=== PATIENT | female | born 2000 | race American Indian/Alaskan Native ===

== ENCOUNTER 2019-02-27 18:02 | Emergency (ER) | payer MEDICAID, OTHER ==
--- NOTE | 2019-02-27 18:28 | Emergency Department Report ---
Blank Doc - Documentation Documentation: This is a 18-year-old female that presents with pelvic pain and vaginal bleedi ng. Stated is but is not sure how far along. This initial assessment/diagnostic orders/clinical plan/treatment(s) is/are subject to change based on patient's health status, clinical progression and re- assessment by fellow clinical providers in the ED. Further treatment and workup at subsequent clinical providers discretion. Patient/guardians urged not to elope from the ED as their condition may be serious if not clinically assessed and managed. Initial orders include: 1- Patient sent to [facility] for further evaluation and treatment 2- labs 3- US OB 4- UA
[2019-02-27 18:31] VITALS: BP 131/72
[2019-02-27 19:29] LABS: Bilirubin,Urine NEG (Negative); Blood,Urine LG (Negative); Color,Urine Yellow (Yellow); Mucus,Urine FEW /HPF; Sperm,Urine FEW /HPF (NP)
[2019-02-27 19:31] LABS: RBC,Urine > 182.0 /HPF (0.0-6.0)
[2019-02-27 19:35] LABS: Basophils # (Auto) 0.1 K/mm3 (0.0-0.1); Basophils % (Auto) 0.7 % (0.0-1.8); Eosinophils % (Auto) 0.4 % (0.0-4.3); Hematocrit 32.3 % (30.3-42.9); Hemoglobin 10.9 gm/dl (10.1-14.3); Lymphocytes # (Auto) 2.5 K/mm3 (1.2-5.4); Mean Corpuscular HGB Conc 34 % (30-34); Mean Corpuscular Volume 91 fl (79-97); Monocytes # (Auto) 0.5 K/mm3 (0.0-0.8); Monocytes % (Auto) 5.3 % (0.0-7.3); Platelet Count 488 K/mm3 (140-440); Red Blood Count 3.56 M/mm3 (3.65-5.03); Red Cell Distribution Width 12.4 % (13.2-15.2)
--- NOTE | 2019-02-27 21:56 | Ultrasound Report ---
PROCEDURE: US OB TRANSVAGINAL TECHNIQUE: Transvaginal OB ultrasound HISTORY: vaginal bleeding . Quantitative beta hCG level 1032. LMP 01/17/2019 with estimated age 5 week s 6 days and EDC 10/24/2019 COMPARISONS: Transabdominal pelvic ultrasound 02/27/2019 FINDINGS: Uterus: Uterus is normal in size and normal and homogeneous in echogenicity without focal fibroid for mation. The uterus measures 7.2 x 2.8 x 3.7 cm in size. There is a single early intrauterine gestat ion noted in the lower uterine segment. Endometrial stripe thickness is 4.9 mm. Intrauterine gestation: There is a single intrauterine gestation identified but no evidence for a fe [place] pole and yolk sac is noted. Gestational sac diameter measurement of 7.5 mm corresponds to estimat ed age 5 weeks 4 days with EDC 10/26/2019. Ovaries: Both ovaries appear normal in size and echogenicity with normal bloodflow bilaterally. The right ovary measures 3.5 x 1.9 x 2.5 cm and the left ovary measures 3.0 x 1.9 x 3.0 cm in size. Other: There is no evidence for solid adnexal mass is seen. There is no free fluid in the cul-de-s ac. IMPRESSION: Single intrauterine gestational sac in the lower uterine segment with an approximate age of 5 weeks 4 days. However, pole and yolk sac are not yet visualized. This document is electronically signed by Whit Kerr MD., Feb 27 2019 09:53:55 PM ET
--- NOTE | 2019-02-27 22:07 | Ultrasound Report ---
PROCEDURE: US OB <= 14 WEEKS FETUS TECHNIQUE: Real-time transabdominal and transvaginal sonography of the uterus, placenta, amniotic fl uid, adnexa, and fetus was performed with image documentation. Measurements were obtained to determin e age/size. M-mode Doppler was used to document heartbeat. ADDITIONAL GESTATION: None. HISTORY: vaginal bleeding COMPARISONS: None . FINDINGS: Yolk Sac: Not visualized . Embryonic Cardiac Activity: Not visualized . Gestational Sac: Mean sac diameter of 0.8 cm, 5 weeks 4 days. Sac is located in the lower uterine se gment Placenta: Not visualizedCervix: Normal. Right Ovary: Normal . 3.5 x 3.5 x 1.9 cm Left Ovary: Normal . 3.0 x 3.0 x 1.9 cm Estimated delivery date: October 26, 2019 . Uterus and adnexa: Normal. IMPRESSION: Single intrauterine gestational sac in the lower uterine segment at 5 weeks 4 days . Th ere is no pole nor cardiac activity seen. EDC by US October 26, 2019 . This document is electronically signed by Luis Armando Piña MD., Feb 27 2019 10:05:09 PM ET
--- NOTE | 2019-02-27 22:55 | Emergency Department Report ---
ED Female HPI - General Chief complaint: Abdominal Pain Stated complaint: 6WKS /BLEEDING/PAIN Time Seen by Provider: 02/27/19 18:27 Source: patient Mode of arrival: Ambulatory Limitations: No Limitations - History of Present Illness Initial comments: Patient is a A0 18-year-old female who is approximately 5 weeks gestation and presents to the ED with a complaint of acute onset light vaginal bleeding for the last 12 hours intermittently. Patient states that she has only used 2 sanitary towels. Patient states that she was at work when she suddenly noticed that she was bleeding when she went to the bathroom. Patient d enies pelvic pain, nausea, vomiting, dizziness, lightheadedness, dysuria, urinary frequency and urgency, hematuria, low back pain or fever and chills. Patient also denies any lifting or traumatic injury. MD Complaint: vaginal bleeding -: Sudden, hour(s) (12), This morning Location: other (vaginal) Radiation: non-radiating Severity: moderate Quality: cramping, dull Consistency: constant Improves with: none Worsens with: none Are you Now?: Yes Last Menstrual Period: 03/09/19 EDC: 12/14/19 Associated Symptoms: vaginal bleeding. denies: vaginal discharge, abdominal pain, nausea/vomiting, fever/chills, headaches, loss of appetite, dysuria, hematuria, rash, seizure, shortness of breath, syncope, weakness - Related Data Sexually active: Yes : 1 Para: 0 A: 0 Previous Rx's Medication Instructions Recorded Last Taken Type cephALEXin [Keflex] 500 mg PO Q8HR #30 cap 02/27/19 Unknown Rx Allergies Allergy/AdvReac Type Severity Reaction Status Date / Time No Known Allergies Allergy Unverified 02/27/19 18:03 ED Review of Systems ROS: Stated complaint: 6WKS /BLEEDING/PAIN Other details as noted in HPI Comment: All other systems reviewed and negative Constitutional: no symptoms reported. denies: see HPI, diaphoresis, fever, weakness Eyes: as per HPI. denies: eye pain, eye discharge, vision change ENT: as per HPI. denies: ear pain, throat pain, dental pain, hearing loss Respiratory: no symptoms reported, see HPI. denies: shortness of breath, SOB with exertion Cardiovascular: as per HPI. denies: chest pain, syncope Endocrine: no symptoms reported, see HPI. denies: increased hunger, increased thirst, increased urine Gastrointestinal: as per HPI. denies: abdominal pain, nausea, vomiting, diarrhea, constipation, hematochezia Genitourinary: as per HPI, other (vaginal bleeding). denies: urgency, dysuria, frequency, hematuria, abnormal menses Musculoskeletal: as per HPI. denies: back pain, joint swelling, arthralgia Skin: as per HPI. denies: rash, lesions, change in color, change in hair/nails Neurological: as per HPI. denies: headache, weakness, numbness, paresthesias Psychiatric: as per HPI Hematological/Lymphatic: as per HPI ED Past Medical Hx - Past Medical History Previous Medical History?: No - Surgical History Past Surgical History?: No - Social History Smoking Status: Never Smoker Substance Use Type: None - Medications Home Medications: Home Medications Medication Instructions Recorded Confirmed Last Taken Type cephALEXin [Keflex] 500 mg PO Q8HR #30 cap 02/27/19 Unknown Rx ED Physical Exam - General Limitations: No Limitations General appearance: alert, in no apparent distress - Head Head exam: Present: atraumatic, normocephalic, normal inspection - Eye Eye exam: Present: normal appearance, PERRL, EOMI - ENT ENT exam: Present: normal exam, normal orophraynx, mucous membranes moist, TM's normal bilaterally, normal external ear exam - Neck Neck exam: Present: normal inspection, full ROM. Absent: tenderness, lymphadenopathy - Respiratory Respiratory exam: Present: normal lung sounds bilaterally. Absent: respiratory distress, wheezes, chest wall tenderness, accessory muscle use, decreased breath sounds - Cardiovascular Cardiovascular Exam: Present: regular rate, normal rhythm, normal heart sounds - GI/Abdominal GI/Abdominal exam: Present: soft, normal bowel sounds. Absent: distended, tenderness, guarding, rebound, hyperactive bowel sounds, hypoactive bowel sounds - Rectal Rectal exam: Present: deferred - External exam: Present: normal external exam Speculum exam: Present: vaginal bleeding Bi-manual exam: Present: normal bi-manual exam - Extremities Exam Extremities exam: Present: normal inspection, normal capillary refill - Back Exam Back exam: Present: normal inspection. Absent: tenderness, CVA tenderness (R), muscle spasm, paraspinal tenderness, vertebral tenderness - Neurological Exam Neurological exam: Present: alert, oriented X3, CN II-XII intact, normal gait, reflexes normal - Psychiatric Psychiatric exam: Present: normal affect - Skin Skin exam: Present: warm, dry, intact ED Course Vital Signs 02/27/19 02/27/19 18:11 18:27 Temperature 98.3 F 98.1 F Pulse Rate 83 80 Respiratory 17 18 Rate Blood Pressure 131/72 Blood Pressure 131/80 [Right] O2 Sat by Pulse 100 100 Oximetry ED Medical Decision Making - Lab Data Result diagrams: 02/27/19 19:19 - Radiology Data Radiology results: report reviewed, image reviewed Transvaginal US shows an IUP of approximately 5 weeks 4 days gestation, with no hear rate appreciated by US. This is likely due to the fact that it is too early - Medical Decision Making Patient is alert and oriented 3 and is not in any distress. Lab test results were reviewed and showed a positive is on the hCG Quant studies, and urinalysis shows hematuria and mild urinary tract infection. Transvaginal ultrasound shows an IUP of approximately 5 weeks 4 days with yolk sac or heart tones. This is likely due to the fact that the is still too early for the ultrasound to measure the heart tones. Patient discharged home and advised to follow up with [facility] in 2-3 days for reevaluation, and to maintain her pelvic rest. Patient is given a prescription for antibiotics for UTI. Patient advised to return to the ED immediately if symptoms get worse. - Differential Diagnosis Threatened miscarriage, Acuet UTI Critical care attestation.: If time is entered above; I have spent that time in minutes in the direct care of this critically ill patient, excluding procedure time. ED Disposition Clinical Impression: Threatened in early , Vaginal bleeding affecting early , Acute urinary tract infection Disposition: TO HOME OR SELFCARE Is pt being admited?: No Does the pt Need Aspirin: No Condition: Stable Instructions: Abdominal Pain (ED) Additional Instructions: TAKE MEDICATIONS WITH FOOD, DRINK PLENTY OF FLUIDS AND MAINTAIN A PELVIC REST AND NO HEAVY LIFTING. FOLLOW UP WITH YOUR [employer] PHYSICIAN IN 2 DAYS FOR REEVA LUATION Prescriptions: cephALEXin [Keflex] 500 mg PO Q8HR #30 cap Referrals: BRITTANI MENA MD [Primary Care Provider] - 3-5 Days Time of Disposition: 22:56 Print Language: ECU[place]ORE[place]
== END 2019-02-28 00:10 | disposition home or self-care (01) ==
LOC: ED 18:02
DX: O20.0 Threatened abortion (principal); O23.41 Unspecified infection of urinary tract in pregnancy, first trimester; Z3A.01 Less than 8 weeks gestation of pregnancy
CPT/HCPCS: 36415; 76801; 76817; 81001; 84702; 85025; 86850; 86900; 86901; 99284